=== PATIENT | male | born 1945 | race African-American/Black ===

== ENCOUNTER 2016-12-09 11:10 | Emergency (ER) | payer MEDICARE ==
[~2016-12-09 11:10] MED LIST: ACET500CAP PO; ARICEPT10 PO; BACDS PO; HALF81 PO; LIPITOR10 PO; MELA3 PO; MULTIVITAMI1 PO; NAMENDA10 MG PO; NORV10 PO; PR12.5 PO; PRIN20 PO; ROZEREM8 MG PO; SENOKOTS PO; TOPXL25 PO; ZOL100 PO
[2016-12-09 12:25] LABS: BASOPHILS 0.4 %; BASOPHILS ABSOLUTE 0.04 10/3/uL (0.0-0.16); EOSINOPHILS 1.8 %; EOSINOPHILS ABSOLUTE 0.18 10/3/uL (0.0-0.53); HEMOGLOBIN 10.2 g/dL (13.6-17.8); IMMATURE GRANULOCYTES 0.3 %; IMMATURE GRANULOCYTES ABSOLUTE 0.03 10/3/uL (0.0-0.11); LYMPHOCYTES ABSOLUTE 1.77 10/3/uL (0.67-4.30); MEAN CORPUS HGB CONC 32.7 g/dL (32.0-36.0); MEAN CORPUSCULAR HEMOGLOB 27.8 pg (26.0-34.0); MEAN PLATELET VOLUME 9.3 fL (9.2-13.0); MONOCYTES 8.1 %; MONOCYTES ABSOLUTE 0.79 10/3/uL (0.21-1.20); NEUTROPHILS 71.4 %; RBC DISTRIBUTION WIDTH 15.1 % (12.0-16.0); RED CELL COUNT 3.67 10/6/uL (4.7-6.1)
[2016-12-09 12:27] LABS: ER CBC TAT 0 Hrs 19 Mins; HEMATOCRIT 31.2 % (40.0-51.0); MANUAL DIFF NO %; PLATELET COUNT 321 10/3/uL (150-400); WHITE BLOOD CELLS 9.8 10/3/uL (4.5-10.5)
[2016-12-09 12:32] LABS: A/G RATIO 0.6 (0.7-1.9); ALBUMIN 2.9 G/DL (3.5-5.0); ALKALINE PHOSPHATASE 61 U/L (45-117); BUN (BLOOD UREA NITROGEN) 18 MG/DL (6-23); CALCIUM, SERUM 8.9 MG/DL (8.5-10.4); CHLORIDE, SERUM 108 MMOL/L (96-112); CO2 (CARBON DIOXIDE) 24 MMOL/L (24-34); CREATININE 1.59 MG/DL (0.70-1.30); GFR AFRICAN AMERICAN 49 ML/MIN (>=60); GFR NON AFRICAN AMERICAN 42 ML/MIN (>=60); GLOBULIN 4.5 G/DL (2.5-4.1); GLUCOSE, SERUM 150 MG/DL (60-99); POTASSIUM, SERUM 4.3 MMOL/L (3.5-5.3); SGOT(AST) 13 U/L (5-40); SGPT(ALT) 16 U/L (5-65); SODIUM, SERUM 140 MMOL/L (135-148); TOTAL PROTEIN 7.4 G/DL (6.0-8.5); TROPONIN I <0.02 NG/ML (<0.05)
[2016-12-09 12:34] LABS: TOTAL BILIRUBIN 0.3 MG/DL (0-1.2)
[2016-12-09 12:42] LABS: ASCORBIC ACID (UR NOT ORDER) NEG (NEG); BILIRUBIN, URINE NEGATIVE (NEG); ER URINALYSIS TAT 0 Hrs 09 Mins; KETONE, URINE NEGATIVE (NEG); LEUKOCYTE ESTERASE(NOT OR LARGE (NEG); NITRITE (URINE) NEG (NEG); WBC (NOT ORDERED) (RFLEX) 52 (0-5)
[2016-12-09 12:49] LABS: PLATELET ESTIMATE ADQ (ADEQUATE)
[2016-12-09 12:50] LABS: RBC MORPHOLOGY NORM (NORMAL)
[2017-01-14] MEDS ORDERED: TAGAMET 200 MG200 MG PO (10:52)
[2017-01-14] MEDS ORDERED: PROSCAR5 PO (10:52)
[2017-01-14] MEDS ORDERED: EXELON4.6T TOP (10:53)
[2017-01-14] MEDS ORDERED: SEROQUEL25 PO (10:53)
[2017-01-14] MEDS ORDERED: LEVAQUIN750 MG PO (10:54)
== END 2016-12-09 16:00 | disposition home or self-care (01) ==
LOC: ER 11:10
PROVIDERS: Emergency Medicine
DX: N39.0 Urinary tract infection, site not specified (principal); R91.8 Other nonspecific abnormal finding of lung field; J44.9 Chronic obstructive pulmonary disease, unspecified; F03.90 Unspecified dementia, unspecified severity, without behavioral disturbance, psychotic disturbance, mood disturbance, and anxiety; I12.9 Hypertensive chronic kidney disease with stage 1 through stage 4 chronic kidney disease, or unspecified chronic kidney disease; N18.9 Chronic kidney disease, unspecified; F41.9 Anxiety disorder, unspecified; E11.9 Type 2 diabetes mellitus without complications; Z79.82 Long term (current) use of aspirin; Z79.899 Other long term (current) drug therapy
CPT/HCPCS: 71010; 71250; 80053; 81001; 84484; 85025; 87077; 87086; 87186; 93005; 96374; 99284